=== PATIENT | female | born 2000 | race Two or more races ===

== ENCOUNTER 2021-01-13 15:38 | Emergency (ER) | payer OTHER ==
[~2021-01-13] VITALS: Ht 144.8 cm; Wt 44.0 kg
[2021-01-13 16:38] LABS: MICROSCOPIC AUTO
[2021-01-13 17:06] LABS: BASOPHILS % (AUTO) 1 % (0-1); EOSINOPHILS % (AUTO) 3 % (1-7); LYMPHOCYTES % (AUTO) 37 % (22-44); MEAN CORPUSCULAR HEMOGLOBIN 30.1 pg (27.0-34.8); MEAN CORPUSCULAR HGB CONC 33.7 g/dL (32.4-35.8); MEAN PLATELET VOLUME 7.4 fL (7.4-10.4); MONOCYTES % (AUTO) 10 % (2-9); NEUTROPHILS % (AUTO) 49 % (42-75); PLATELET COUNT 283 x10^3/uL (130-400); RED BLOOD COUNT 4.77 x10^6/uL (3.82-5.3); RED CELL DISTRIBUTION WIDTH 13.1 % (9.6-15.2)
[2021-01-13 17:15] LABS: ALANINE AMINOTRANSFERASE 21 U/L (12-78); ALBUMIN 3.9 g/dL (3.4-5.0); ANION GAP 4 mmol/L (5-15); CHLORIDE 106 mmol/L (98-107); CREATININE 0.66 mg/dL (0.55-1.02)
[2021-01-13 17:20] LABS: ALKALINE PHOSPHATASE 68 U/L (45-117); BILIRUBIN,TOTAL 0.5 mg/dL (0.2-1.0); TOTAL PROTEIN 8.2 g/dL (6.4-8.2)
[2021-01-13 23:59] VITALS: BP 114/78
--- NOTE | 2021-01-14 01:21 | NUR ---
PT AMBULATED TO ROOM IN MILD DISTRESS WITH PAIN TO RIGHT ABDOMEN. MD TO BEDSIDE.
--- NOTE | 2021-01-14 02:14 | NUR ---
F/U AND D/C INSTRUCTIONS GIVEN TO PT WITH PRESCRIPTIONS AND MD TO SPEAK WITH PT AND THEY V/U. PT AMBULATED TO THE DISCHARGE.
== END 2021-01-14 02:17 | disposition home or self-care (01) ==
LOC: ED 16:00
DX: N30.00 Acute cystitis without hematuria (principal); R10.31 Right lower quadrant pain
CPT/HCPCS: 36415; 74176; 76830; 80053; 81001; 84703; 85025; 87086; 99285